=== PATIENT | female | born 1950 | race Caucasian/White ===

== ENCOUNTER 2023-02-15 19:45 | Emergency (ER) | payer OTHER ==
[2023-02-15 20:08] VITALS: TEMP 98.4; BMI 24.7
[2023-02-15] MEDS ORDERED: cloNIDine HCL 0.1 MG TABLET PO ONE (20:51)
[2023-02-15] MEDS ORDERED: AMOX TR/POT CLAV 875MG/125MG TABLETS (FP) PO ONE (21:14)
[2023-02-15] MEDS ORDERED: AMOX TR/POT CLAV 875MG/125MG TABLETS (FP) ONE (21:16)
[2023-02-16 20:02] VITALS: BP 165/79; PULSE 72; RESP 18
== END 2023-02-15 21:22 | disposition home or self-care (01) ==
LOC: FER 19:45
DX: S81.051A Open bite, right knee, initial encounter (principal); W54.0XXA Bitten by dog, initial encounter; Y93.89 Activity, other specified; Y92.830 Public park as the place of occurrence of the external cause
CPT/HCPCS: 99283-25